=== PATIENT | male | born 1960 | race Caucasian/White ===

== ENCOUNTER 2021-10-20 16:02 | Emergency (ER) | payer OTHER ==
[2021-10-20 16:27] LABS: BASOPHIL 0.1 % (0-2); EOSINOPHIL 0 % (0-5); HCT 47.1 % (42.0-52.0); HGB 16.1 g/dl (13.2-18.0); LYMPHOCYTE 12.6 % (15-48); MCH 31.3 pg (25.0-31.0); MCHC 34.2 g/dL (32.0-36.0); MCV 91.5 fL (78.0-100.0); MONOCYTE 5.6 % (0-12); MPV 10.4 fL (6.0-9.5); NEUTROPHIL 81.4 % (41-80); NRBC 0; PLT 240 K/uL (150-400); RBC 5.15 M/uL (4.70-6.00); RDW 12.8 % (11.5-14.0); WBC 10.5 K/uL (4.0-10.5)
[2021-10-20 16:33] LABS: INR 1.09 (0.9-1.2); PROTHROMBIN TIME 13.5 SECONDS (11.8-13.4)
[2021-10-20 16:42] LABS: ALBUMIN 3.6 g/dL (3.4-5.0); BILIRUBIN - TOTAL 0.7 mg/dL (0.2-1.0); BUN/CREAT RATIO (CALC) 22.8 RATIO; CREATININE 0.79 mg/dL (0.67-1.17); GLOBULIN (CALCULATION) 3.7 g/dL; POTASSIUM 4.2 mmol/L (3.5-5.1); TOTAL PROTEIN 7.3 g/dL (6.4-8.2)
[2021-10-20 16:46] LABS: LACTIC ACID 2.3 mmol/L (0.4-1.9)
[2021-10-20 17:21] LABS: CORONAVIRUS 2019 SARS-COV-2 NEGATIVE (NEGATIVE); INFLUENZA A NAA NEGATIVE (NEGATIVE)
[2021-10-20] MEDS ORDERED: CARAFATE1 GM PO (19:32)
[2021-10-20] MEDS ORDERED: PROTONIX 40MG T40 MG PO (19:32)
[2021-10-20] MEDS ORDERED: ONDANSETRON ODT4 MG PO (19:32)
[2021-10-20] MEDS ORDERED: PEPCID AC20 MG PO (19:32)
[2021-10-20 20:31] LABS: BILIRUBIN NEGATIVE (NEGATIVE); BLOOD TRACE-LYSED Ery/uL (NEGATIVE); CLARITY CLEAR (CLEAR); COLOR YELLOW (YELLOW); GLUCOSE (U) 3+ mg/dL (NORMAL); LEUKOCYTES NEGATIVE Leu/uL (NEGATIVE); NITRITE NEGATIVE (NEGATIVE); PROTEIN NEGATIVE (NEGATIVE); SPECIFIC GRAVITY 1.025 (1.001-1.030); UROBILINOGEN 0.2 mg/dL (0.2-1.0)
[2021-10-20 20:40] LABS: URINARY RBC RARE
== END 2021-10-20 23:06 | disposition home or self-care (01) ==
LOC: FER 16:02
PROVIDERS: Emergency Medicine
DX: K21.9 Gastro-esophageal reflux disease without esophagitis (principal); I10 Essential (primary) hypertension; E11.9 Type 2 diabetes mellitus without complications; F17.200 Nicotine dependence, unspecified, uncomplicated; Z88.4 Allergy status to anesthetic agent; Z88.6 Allergy status to analgesic agent; Z88.8 Allergy status to other drugs, medicaments and biological substances; Z20.822 Contact with and (suspected) exposure to COVID-19
CPT/HCPCS: 36415; 80053; 81001; 83605; 83690; 85025; 85610; 85730; 93005; C9113; J1170; J2270; J2405; J2550; J7040; U0002

== ENCOUNTER 2022-03-19 10:09 | Emergency (ER) | payer OTHER ==
[~2022-03-19 10:09] MED LIST: CARAFATE1 GM PO; ONDANSETRON ODT4 MG PO; PEPCID AC20 MG PO; PROTONIX 40MG T40 MG PO
[2022-03-19 10:55] LABS: BASOPHIL 0.4 % (0-2); EOSINOPHIL 0.7 % (0-5); HCT 54.6 % (42.0-52.0); HGB 18.7 g/dl (13.2-18.0); LYMPHOCYTE 23.2 % (15-48); MCH 30.5 pg (25.0-31.0); MCHC 34.2 g/dL (32.0-36.0); MCV 89.1 fL (78.0-100.0); MONOCYTE 10.3 % (0-12); MPV 11.1 fL (6.0-9.5); NEUTROPHIL 64.3 % (41-80); NRBC 0; PLT 315 K/uL (150-400); RBC 6.13 M/uL (4.70-6.00); RDW 12.1 % (11.5-14.0); WBC 12.4 K/uL (4.0-10.5)
[2022-03-19 10:57] LABS: INR 1.1 (0.9-1.2); PROTHROMBIN TIME 13.6 SECONDS (11.8-13.4); PTT 27.5 SECONDS (24.4-34.7)
[2022-03-19 11:21] LABS: ALBUMIN 3.6 g/dL (3.4-5.0); BUN/CREAT RATIO (CALC) 21.7 RATIO; CREATININE 1.15 mg/dL (0.67-1.17); GLOBULIN (CALCULATION) 3.9 g/dL; MAGNESIUM 2.2 mg/dL (1.8-2.4); POTASSIUM 3.1 mmol/L (3.5-5.1); TOTAL PROTEIN 7.5 g/dL (6.4-8.2)
[2022-03-19 11:33] LABS: LACTIC ACID 1.4 mmol/L (0.4-1.9)
[2022-03-19 15:46] LABS: BILIRUBIN NEGATIVE (NEGATIVE); BLOOD NEGATIVE Ery/uL (NEGATIVE); CLARITY CLEAR (CLEAR); COLOR YELLOW (YELLOW); GLUCOSE (U) 1+ mg/dL (NORMAL); LEUKOCYTES NEGATIVE Leu/uL (NEGATIVE); NITRITE NEGATIVE (NEGATIVE); PROTEIN NEGATIVE (NEGATIVE); pH 6.5 (5.0-9.0)
[2022-03-20 07:21] LABS: BASOPHIL 0.2 % (0-2); EOSINOPHIL 1.8 % (0-5); HCT 42.5 % (42.0-52.0); HGB 14.6 g/dl (13.2-18.0); LYMPHOCYTE 27.5 % (15-48); MCH 30.7 pg (25.0-31.0); MCHC 34.4 g/dL (32.0-36.0); MCV 89.3 fL (78.0-100.0); MPV 10.5 fL (6.0-9.5); NEUTROPHIL 61.3 % (41-80); NRBC 0; PLT 238 K/uL (150-400); RBC 4.76 M/uL (4.70-6.00); WBC 9.4 K/uL (4.0-10.5)
[2022-03-20 07:42] LABS: ALBUMIN 2.7 g/dL (3.4-5.0); BILIRUBIN - TOTAL 0.7 mg/dL (0.2-1.0); CREATININE 0.79 mg/dL (0.67-1.17); GLOBULIN (CALCULATION) 2.8 g/dL
[2022-03-20 07:43] LABS: TOTAL PROTEIN 5.5 g/dL (6.4-8.2)
== END 2022-03-21 01:10 | disposition other institution (70) ==
LOC: FER 10:09
PROVIDERS: Emergency Medicine; Internal Medicine
DX: K21.00 Gastro-esophageal reflux disease with esophagitis, without bleeding (principal); E10.9 Type 1 diabetes mellitus without complications; I10 Essential (primary) hypertension; Z86.73 Personal history of transient ischemic attack (TIA), and cerebral infarction without residual deficits; Z88.5 Allergy status to narcotic agent; Z79.899 Other long term (current) drug therapy; Z79.02 Long term (current) use of antithrombotics/antiplatelets; Z20.822 Contact with and (suspected) exposure to COVID-19
CPT/HCPCS: 36415; 80053; 81003; 83605; 83690; 83735; 84145; 84484; 85025; 85610; 85730; 93005; C9113; J1170; J1450; J7030; Q9967; U0002

== ENCOUNTER 2022-06-04 10:06 | Inpatient (IN) | payer OTHER ==
[~2022-06-04] VITALS: Ht 165.1 cm; Wt 62.4 kg
[2022-06-04 10:35] LABS: BASOPHIL 0.1 % (0-2); EOSINOPHIL 0 % (0-5); HCT 44.1 % (42.0-52.0); LYMPHOCYTE 5.7 % (15-48); MCH 30.5 pg (25.0-31.0); MCV 89.6 fL (78.0-100.0); MONOCYTE 1.8 % (0-12); MPV 10.9 fL (6.0-9.5); NRBC 0; PLT 317 K/uL (150-400); RBC 4.92 M/uL (4.70-6.00); RDW 13.6 % (11.5-14.0); WBC 17.5 K/uL (4.0-10.5)
[2022-06-04 10:43] LABS: NEUTROPHIL 92.1 % (41-80)
[2022-06-04 10:57] LABS: ALBUMIN 3.6 g/dL (3.4-5.0); BUN/CREAT RATIO (CALC) 25.9 RATIO; CREATININE 0.85 mg/dL (0.67-1.17); GLOBULIN (CALCULATION) 3.5 g/dL; POTASSIUM 3.8 mmol/L (3.5-5.1); TOTAL PROTEIN 7.1 g/dL (6.4-8.2)
[2022-06-04 13:03] LABS: BILIRUBIN NEGATIVE (NEGATIVE); BLOOD NEGATIVE Ery/uL (NEGATIVE); CLARITY CLEAR (CLEAR); COLOR YELLOW (YELLOW); GLUCOSE (U) NORMAL (NORMAL); LEUKOCYTES NEGATIVE Leu/uL (NEGATIVE); NITRITE NEGATIVE (NEGATIVE); PROTEIN NEGATIVE (NEGATIVE); UROBILINOGEN 0.2 mg/dL (0.2-1.0); pH 6.5 (5.0-9.0)
--- NOTE | 2022-06-04 13:58 | NUR ---
RECEIVED FROM ER VIA STRETCHER, ASSESSMENT COMPLETED ORIENTED TO ROOM, CALL LIGHT IN PLACE
[2022-06-04] MEDS ORDERED: NORVASC2.5 MG PO (14:03)
[2022-06-04] MEDS ORDERED: PLAVIX75 MG PO (14:04)
[2022-06-04] MEDS ORDERED: LIPITOR40 MG PO (14:04)
[2022-06-04] MEDS ORDERED: FLONASE ALLER15.8 ML (14:04)
[2022-06-04] MEDS ORDERED: ASPIRIN EC81 MG PO (14:04)
[2022-06-04] MEDS ORDERED: ATARAX25 MG PO (14:05)
[2022-06-04] MEDS ORDERED: NOVOLOG VI100 UNIT/1 SQ (14:06)
[2022-06-04] MEDS ORDERED: COZAAR50 MG PO (14:07)
[2022-06-04] MEDS ORDERED: LACTULOSE10 G/15 ML PO (14:07)
[2022-06-04] MEDS ORDERED: LOPRESSOR25 MG PO (14:07)
[2022-06-04] MEDS ORDERED: ROXICODONE5 MG PO (14:08)
[2022-06-04] MEDS ORDERED: ONDANSETRON ODT4 MG PO (14:08)
[2022-06-04] MEDS ORDERED: LYRICA 50MG CAP50 MG PO (14:09)
[2022-06-04] MEDS ORDERED: MIRALAX17 GM PO (14:09)
[2022-06-04] MEDS ORDERED: PHENERGAN25 M1 PO (14:09)
[2022-06-04 20:55] LABS: BASOPHIL 0.2 % (0-2); EOSINOPHIL 0 % (0-5); HCT 42.6 % (42.0-52.0); HGB 14.1 g/dl (13.2-18.0); LYMPHOCYTE 12.4 % (15-48); MCH 30.2 pg (25.0-31.0); MCHC 33.1 g/dL (32.0-36.0); MCV 91.2 fL (78.0-100.0); MONOCYTE 7.7 % (0-12); NEUTROPHIL 79.2 % (41-80); NRBC 0; PLT 257 K/uL (150-400); RBC 4.67 M/uL (4.70-6.00); RDW 13.6 % (11.5-14.0); WBC 21.1 K/uL (4.0-10.5)
[2022-06-04 21:06] LABS: INR 1.09 (0.9-1.2); PROTHROMBIN TIME 13.8 SECONDS (11.9-13.9); PTT 26.9 SECONDS (24.9-34.6)
[2022-06-05 06:10] LABS: BASOPHIL 0.3 % (0-2); EOSINOPHIL 0.3 % (0-5); HGB 14.1 g/dl (13.2-18.0); LYMPHOCYTE 17.2 % (15-48); MCH 30.1 pg (25.0-31.0); MCHC 32.8 g/dL (32.0-36.0); MCV 91.7 fL (78.0-100.0); MONOCYTE 8.8 % (0-12); MPV 10.1 fL (6.0-9.5); NEUTROPHIL 73.1 % (41-80); NRBC 0; PLT 262 K/uL (150-400); RBC 4.69 M/uL (4.70-6.00); RDW 13.9 % (11.5-14.0); WBC 17.2 K/uL (4.0-10.5)
[2022-06-05 06:44] LABS: ALBUMIN 3.1 g/dL (3.4-5.0); BILIRUBIN - TOTAL 1.7 mg/dL (0.2-1.0); BUN/CREAT RATIO (CALC) 23.5 RATIO; C-REACTIVE PROTEIN 0.8 mg/dL (<=0.90); CREATININE 0.98 mg/dL (0.67-1.17); MAGNESIUM 1.9 mg/dL (1.8-2.4); POTASSIUM 3.8 mmol/L (3.5-5.1); TOTAL PROTEIN 6.1 g/dL (6.4-8.2)
[2022-06-06 06:49] LABS: BASOPHIL 0.8 % (0-2); EOSINOPHIL 2.9 % (0-5); HCT 39.4 % (42.0-52.0); LYMPHOCYTE 23.2 % (15-48); MCH 30.2 pg (25.0-31.0); MCV 91.6 fL (78.0-100.0); MONOCYTE 8.5 % (0-12); MPV 10.3 fL (6.0-9.5); NEUTROPHIL 64.3 % (41-80); NRBC 0; PLT 255 K/uL (150-400); RDW 13.4 % (11.5-14.0); WBC 11.6 K/uL (4.0-10.5)
[2022-06-06 07:26] LABS: MAGNESIUM 1.9 mg/dL (1.8-2.4); POTASSIUM 3.7 mmol/L (3.5-5.1)
[2022-06-06] MEDS ORDERED: PROTONIX 40MG T40 MG PO (10:14)
== END 2022-06-06 11:35 | disposition home or self-care (01) | DRG 368 ==
LOC: FER 10:06 → FTCU 12:29
PROVIDERS: Emergency Medicine; ADMIT Internal Medicine
DX: K20.91 Esophagitis, unspecified with bleeding (principal); I21.A1 Myocardial infarction type 2; K22.6 Gastro-esophageal laceration-hemorrhage syndrome; K27.4 Chronic or unspecified peptic ulcer, site unspecified, with hemorrhage; E11.43 Type 2 diabetes mellitus with diabetic autonomic (poly)neuropathy; K31.84 Gastroparesis; I10 Essential (primary) hypertension; I25.10 Atherosclerotic heart disease of native coronary artery without angina pectoris; E78.5 Hyperlipidemia, unspecified; Z98.61 Coronary angioplasty status; Z95.1 Presence of aortocoronary bypass graft; Z86.73 Personal history of transient ischemic attack (TIA), and cerebral infarction without residual deficits; Z98.52 Vasectomy status; Z88.8 Allergy status to other drugs, medicaments and biological substances; Z79.82 Long term (current) use of aspirin; Z79.899 Other long term (current) drug therapy; Z79.4 Long term (current) use of insulin; Z82.49 Family history of ischemic heart disease and other diseases of the circulatory system; Z83.3 Family history of diabetes mellitus; Z28.311 Partially vaccinated for COVID-19
CPT/HCPCS: 36415; 80048; 80053; 80061; 81003; 82150; 82553; 82962; 83036; 83605; 83690; 83735; 84484; 85025; 85610; 85730; 86140; 86850; 86900; 86901; 87040; 87088; 93005; 94010; C9113; J0780; J1170; J2270; J2405; J7030